=== PATIENT | female | born 1955 | race Two or more races ===

== ENCOUNTER 2017-02-20 18:37 | Emergency (ER) | payer OTHER ==
[~2017-02-20] VITALS: Ht 152.4 cm; Wt 73.8 kg
[2017-02-20] MEDS ORDERED: SODIUM CHLORIDE FLUSH 10ML SYR IVF ONE (19:00)
[2017-02-20] MEDS ORDERED: MORPHINE SULFATE 4 MG/ML, 1ML IVPush PRN (19:00)
[2017-02-20] MEDS ORDERED: ONDANSETRON 2MG/ML, 2ML IVPush ONE (19:00)
[2017-02-20 19:26] LABS: ASPARTATE AMINO TRANSFERASE 18 U/L (15-37); BLOOD UREA NITROGEN 20 mg/dL (7-18)
[2017-02-20] MEDS ORDERED: ONDANSETRON 2MG/ML, 2ML ONE (19:40)
[2017-02-20] MEDS ORDERED: MORPHINE SULFATE 4 MG/ML, 1ML ONE (19:40)
[2017-02-20] MEDS ORDERED: LEVO25TA4 PO (19:48)
[2017-02-20] MEDS ORDERED: NAPR-874 PO (19:48)
[2017-02-20] MEDS ORDERED: CYCLOBENZAPRINE 10 MG TABLET PO ONE (20:00)
[2017-02-20] MEDS ORDERED: CYCLOBENZAPRINE 10 MG TABLET ONE (20:12)
[2017-02-20 20:36] VITALS: BP 122/74
== END 2017-02-20 21:35 | disposition home or self-care (01) ==
LOC: ED 21:29
DX: M43.06 Spondylolysis, lumbar region (principal); E07.9 Disorder of thyroid, unspecified; Z95.1 Presence of aortocoronary bypass graft
CPT/HCPCS: 36415; 72110; 80053; 81003; 85025; 96374; 96375; 99285; J2405

== ENCOUNTER → 2017-03-31 | Outpatient (CLI) | payer OTHER ==
[~2017-03-31] MED LIST: LEVO25TA4 PO; NAPR-874 PO
== END | disposition home or self-care (01) ==
LOC: CFH 08:37
PROVIDERS: ATTEND Family Medicine
DX: Z12.31 Encounter for screening mammogram for malignant neoplasm of breast (principal)
CPT/HCPCS: G0202

== ENCOUNTER → 2018-04-05 | Outpatient (CLI) | payer BC ==
[~2018-04-05] MED LIST changes: -NAPR-874 PO; +NAPR250T6 PO
== END | disposition home or self-care (01) ==
LOC: CFH 07:12
PROVIDERS: ATTEND Family Medicine
DX: Z12.31 Encounter for screening mammogram for malignant neoplasm of breast (principal)
CPT/HCPCS: 77067

== ENCOUNTER → 2018-08-17 | Outpatient (CLI) | payer BC | END | disposition home or self-care (01) | LOC: CVU 08:37 | PROVIDERS: ATTEND Internal Medicine Cardiovascular Disease | DX: I08.0 Rheumatic disorders of both mitral and aortic valves (principal) | CPT/HCPCS: 0399T; 93017; 93306; 93350 ==

== ENCOUNTER → 2018-10-12 | Outpatient (CLI) | payer BC | END | disposition home or self-care (01) | LOC: RAD 07:48 | PROVIDERS: ATTEND Internal Medicine Gastroenterology | DX: R13.19 Other dysphagia (principal); Z98.84 Bariatric surgery status | CPT/HCPCS: 74241 ==

== ENCOUNTER 2020-05-20 21:35 | Emergency (ER) | payer BC ==
[~2020-05-20] VITALS: Ht 149.9 cm; Wt 71.7 kg
[~2020-05-20 21:35] MED LIST changes: +IRON1TAB60 PO
[2020-05-20] MEDS ORDERED: METHOCARBAMOL 750 MG TABLET PO ONE (22:00)
[2020-05-20] MEDS ORDERED: METHOCARBAMOL 750 MG TABLET ONE (22:00)
[2020-05-20 22:12] LABS: BASOPHILS # (AUTO) 0.02 x10^3/uL (0-0.1); BASOPHILS % (AUTO) 0 % (0-1); EOSINOPHILS # (AUTO) 0.09 x10^3/uL (0-0.4); EOSINOPHILS % (AUTO) 1 % (1-7); LYMPHOCYTES # (AUTO) 1.99 x10^3/uL (1-3.4); LYMPHOCYTES % (AUTO) 26 % (22-44); MD NO; MEAN CORPUSCULAR HEMOGLOBIN 33.3 pg (27.0-34.8); MEAN CORPUSCULAR HGB CONC 33.6 g/dL (32.4-35.8); MEAN PLATELET VOLUME 7.5 fL (7.4-10.4); MONOCYTES # (AUTO) 0.57 x10^3/uL (0.2-0.8); MONOCYTES % (AUTO) 7 % (2-9); NEUTROPHILS % (AUTO) 65 % (42-75); PLATELET COUNT 328 x10^3/uL (130-400); RED CELL DISTRIBUTION WIDTH 14.7 % (9.6-15.2)
[2020-05-20 22:22] LABS: ALANINE AMINOTRANSFERASE 21 U/L (12-78); ALBUMIN 3.1 g/dL (3.4-5.0); ANION GAP 4 mmol/L (5-15); CALCIUM 8.3 mg/dL (8.5-10.1); CHLORIDE 108 mmol/L (98-107); CREATININE 0.98 mg/dL (0.55-1.02)
[2020-05-20 22:25] LABS: ALKALINE PHOSPHATASE 89 U/L (45-117); BILIRUBIN,TOTAL 0.4 mg/dL (0.2-1.0); TOTAL PROTEIN 6.9 g/dL (6.4-8.2)
[2020-05-20 23:19] LABS: MICROSCOPIC INDICATED
[2020-05-21] MEDS ORDERED: CEFDINIR 300 MG CAPSULE ONE (00:48)
[2020-05-21] MEDS ORDERED: METHOCARBAMOL 750 MG TABLET ONE (00:48)
[2020-05-21 00:57] VITALS: BP 121/69
[2020-05-21] MEDS ORDERED: METHOCARBAMOL 750 MG TABLET PO ONE (01:00)
[2020-05-21] MEDS ORDERED: CEFDINIR 300 MG CAPSULE PO ONE (01:00)
== END 2020-05-20 23:53 | disposition home or self-care (01) ==
LOC: ED 21:55
DX: S39.012A Strain of muscle, fascia and tendon of lower back, initial encounter (principal); N30.00 Acute cystitis without hematuria; M62.830 Muscle spasm of back; W18.30XA Fall on same level, unspecified, initial encounter; Y93.89 Activity, other specified; Y92.89 Other specified places as the place of occurrence of the external cause; Y99.8 Other external cause status
CPT/HCPCS: 36415; 74176; 80053; 81001; 83690; 85025; 87077; 87086; 87186; 99284

== ENCOUNTER 2021-06-11 19:49 | Emergency (ER) | payer BC ==
[~2021-06-11] VITALS: Ht 152.4 cm; Wt 74.3 kg
[~2021-06-11 19:49] MED LIST changes: +NAPR-872 PO; -NAPR250T6 PO
[2021-06-11 19:55] VITALS: BP 114/78
[2021-06-11] MEDS ORDERED: KETOROLAC 30 MG/1 ML IM ONE (20:00)
[2021-06-11] MEDS ORDERED: DIAZEPAM 5 MG TABLET PO ONE (20:00)
--- NOTE | 2021-06-11 22:21 | NUR ---
pt to room from lobby
--- NOTE | 2021-06-11 23:56 | NUR ---
pt educated on dc instructions, vrebalized understanding. ambulatory to dc desk with steday gait.
== END 2021-06-12 00:01 | disposition home or self-care (01) ==
LOC: ED 23:19
DX: M54.5 Low back pain (principal); G89.29 Other chronic pain; I25.10 Atherosclerotic heart disease of native coronary artery without angina pectoris; Z86.39 Personal history of other endocrine, nutritional and metabolic disease; X58.XXXA Exposure to other specified factors, initial encounter; Y93.89 Activity, other specified; Y92.89 Other specified places as the place of occurrence of the external cause; Y99.8 Other external cause status
CPT/HCPCS: 96372; 99283; J1885